=== PATIENT | male | born 1970 | race Caucasian/White ===

== ENCOUNTER 2022-02-03 10:39 | Emergency (ER) | payer OTHER, SELFPAY ==
--- NOTE | ~2022-02-03 | XR_ITS ---
EXAMINATION: XR chest 2V DATE: 02/03/2022 11:06 INDICATION: Cough, COVID 19 positive TECHNIQUE: PA and lateral views of the chest are obtained. COMPARISON: None available FINDINGS: There are minimal airspace opacities of the left lung base. No pleural effusion or pneumoth orax. The cardiomediastinal silhouette is normal. The visualized bones and soft tissues are unremarka ble. IMPRESSION: 1. Left basilar airspace opacity, consistent with atelectasis versus pneumonia. Reviewed, dictated and finalized at location B.
--- NOTE | 2022-02-03 10:47 | ED.GENADULT ---
HPI - General Adult General Chief complaint: Upper Respiratory Infection Stated complaint: Sore Throat,Cough,Shortness of Breath History of Present Illness HPI narrative: Mr Kirkland is a pleasant 51 y/o male. PMHx none reported. Presents to local [facility] today with acute complaints of productive cough, sore throat, as well as intermittent dyspnea. He tells me his manifestations have been ongoing now since Sunday01/30/2022, in the setting of a positive home Covid test. No fevers. He has had body aches and chills. No LORENZANA, focal weakness. No involuntary drooling or stridor. Does hurt to swallow. He tells me his young son has also tested positive for Streptococcal sore throat 1 day ago. Denies chest pain, palpitations, edema. 'Yellow' Productive cough. Has had intermittent dyspnea, no wheezing. Non-smoker. No underlying pulmonary disease. No GI upset, abdominal pain, N/V/D. He is concerned for potential conjunctive streptococcal sore throat infection, considering home close exposure as aforementioned. No additional acute c/o upon PE. Related Data Home Medications Medication Instructions Recorded Confirmed atorvastatin 20 mg tablet 20 mg DAILY 02/03/22 02/03/22 cetirizine 10 mg tablet (Zyrtec) 10 mg PO DAILY 02/03/22 02/03/22 hydrochlorothiazide 12.5 mg capsule 12.5 mg DAILY 02/03/22 02/03/22 lisinopril 40 mg tablet 40 mg DAILY 02/03/22 02/03/22 rabeprazole 20 mg tablet,delayed 20 mg PO DAILY 02/03/22 02/03/22 release (AcipHex) Allergies Allergy/AdvReac Type Severity Reaction Status Date / Time Cephalosporins Allergy Unknown Verified 02/03/22 11:21 Penicillins Allergy Unknown Verified 02/03/22 11:21 Sulfa (Sulfonamide Allergy Unknown Verified 02/03/22 11:21 Antibiotics) Review of Systems Review of Systems: CONSTITUTIONAL: Denies fever, chills, sweats. EYES: Denies visual changes, redness, discharge. ENT: + rhinorrhea, congestion, sore throat. No otalgia. CARDIOVASCULAR: Denies chest pain, palpitations, edema. RESPIRATORY: + dyspnea, cough. No wheezing. GASTROINTESTINAL: Denies abdominal pain, nausea, vomiting, diarrhea. GENITOURINARY: Denies dysuria, hematuria, abnormal discharge SKIN: Denies rash or itching. MUSCULOSKELETAL: Denies acute back pain, joint pain, or myalgia. NEUROLOGIC: Denies numbness, or focal weakness. PSYCHIATRIC: Denies anxiety or depression. Exam Narrative: GENERAL: This is a well-nourished, well-developed adult, in no apparent distress. HEAD: normocephalic, atraumatic. EYES: PERRL. Sclera clear/white. EARS: External ears normal, auditory canals clear and without drainage, TMs normal. NOSE: External nose normal. Positive Rhinorrhea, no obstruction, nares patent. THROAT: Mucous membranes moist, posterior pharynx is erythematous, No exudative changes. No swelling. NECK: Neck supple, non-tender without lymphadenopathy, masses or thyromegaly. CARDIOVASCULAR: Regular rate and rhythm without murmurs, gallops, or rubs. RESPIRATORY: Clear to auscultation. Breath sounds equal bilaterally. No wheezes, rales, or rhonchi. GASTROINTESTINAL: Abdomen soft, non-tender, nondistended. Bowel sounds are active. No guarding. SKIN: warm, intact with no suspicious lesions or rash, good texture and turgor. NEURO: Alert, active, and age appropriate. No focal neurologic deficits. EXTREMITIES: Negative. Course Course Level of Care: Express Care Visit Vital Signs Vital signs: Vital Signs Temperature 36.9 C 02/03/22 10:55 Pulse Rate 77 02/03/22 10:55 Respiratory Rate 16 02/03/22 10:55 Blood Pressure 107/79 02/03/22 10:55 Pulse Oximetry 96 02/03/22 10:55 Oxygen Delivery Room Air 02/03/22 10:55 Temperature 36.9 C 02/03/22 10:55 Pulse Rate 77 02/03/22 10:55 Respiratory Rate 16 02/03/22 10:55 Blood Pressure 107/79 02/03/22 10:55 Pulse Oximetry 96 02/03/22 10:55 Oxygen Delivery Room Air 02/03/22 10:55 Medical Decision Sonia
[2022-02-03 10:55] VITALS: BP 107/79; PULSE 77; RESP 16; TEMP 36.9; O2SAT 96
== END 2022-02-03 11:39 | disposition home or self-care (01) ==
PROVIDERS: Emergency Provider Nurse Practitioner Adult Health; PCP Family Medicine
DX: J02.9 Acute pharyngitis, unspecified (principal); B34.9 Viral infection, unspecified; J18.9 Pneumonia, unspecified organism; Z86.16 Personal history of COVID-19
CPT/HCPCS: 71046; 87081; 87880; 99203; G0463